=== PATIENT | male | born 1950 | race Caucasian/White ===

== ENCOUNTER → 2016-07-27 | Outpatient (CLI) | payer OTHER ==
--- NOTE | 2016-07-27 10:33 | DIAGNOSTIC IMAGING REPORT ---
CHEST 2 VIEWS ROUTINE HISTORY: TOBACCO USE COMPARISON: Chest 07/28/2015. FINDINGS: Mild emphysema and mild interstitial thickening remain unchanged. No new focal lung consolidations. The heart is normal in size. No pleural effusions. No pneumothorax. Old, healed left humeral neck fracture. IMPRESSION: No significant change compared to the prior study. No acute process. Mild emphysema. Electronically signed by: Tip Mcleod M.D. 07/27/2016 10:32 AM Dictated Date/Time: 07/27/2016 10:29 AM
== END ==
LOC: C.RADBBURG 10:23
PROVIDERS: ATTEND Physician Assistant
DX: Z72.0 Tobacco use (principal)